=== PATIENT | female | born 1955 | race Caucasian/White ===

== ENCOUNTER → 2020-03-04 09:58 | Outpatient (CLI) | payer MEDICARE, OTHER ==
--- NOTE | 2020-03-08 08:54 | EC ---
PATIENT:LASHELL JACKSON DATE OF SERVICE: 03/04/20 SEX: F MEDICAL RECORD: [id number] DATE OF : 51 LOCATION:[facility] AGE OF PATIENT: 64 ADMISSION DATE: 03/04/20 REFERRING PHYSICIAN: INTERPRETING PHYSICIAN: CALVIN ANDREWS MD ECHOCARDIOGRAM REPORT ECHO CHARGES 4 ECHO COMPLETE Date: 03/04/20 CLINICAL DIAGNOSIS: HEART MURMUR ECHOCARDIOGRAPHIC MEASUREMENTS (adult normal given) AC root (d.<3.7cm) 2.7 cm LV Septum d (<1.2 cm> 1.1 cm Valve Excursion 1.2 cm LV Septum (systole) 1.4 cm Left Atria (s.<4.0cm> 3.7 cm LVPW d(<1.2cm) 1.0 cm RV (d.<2.3cm) 3.5 cm LVPW (sytole) 1.4 cm LV diastole(<5.6CM) 4.5 cm MV E-F(>70mm/sec) cm LV systole 2.7 cm LVOT Diameter 1.8 cm MV exc.(>10mm) 1.1 cm Est.ejection fraction (50-75%) % DOPPLER: LVIT cm/sec A 114.0cm/sec E 97.0 cm/sec LA cm/sec RVSP 98 mmHg LVOT cm/sec AOP1/2T 48 m/s Asc. Ao 106 cm/sec RVOT 134 cm/sec RA 61 cm/sec PA cm/sec AV Gradient Peak 7.18 mmHg AV Mean 3.80 mmHg AV Area 1.9 cm MV Gradient Peak 7.90 mmHg MV Mean 2.77 mmHg MV Area cm COMMENTS: Grill Attendant: 2 DALI NG Food Stylist: 3 Dr. Trammell TAPE# PACS Pericardial Effusion Y DATE OF SERVICE: 03/04/2020 Adequate 2D, color flow imaging, spectral Doppler, and M-Mode. Borderline LVH. LV internal dimensions are normal. Wall motion normal. EF greater than or equal to 55%. Aortic valve is tricuspid. No evidence of stenosis by Doppler interrogation. Left atrium is normal at 3.7 cm. Mitral valve shows no prolapse. Trace MR. Right-sided chambers are grossly normal. Moderate TR. ECHOCARDIOGRAM REPORT [id number] LASHELL JACKSON TRANSINT:[id number] Voice Confirmation ID: [id number] DOCUMENT ID: [id number] CALVIN ANDREWS MD at 0854 CC: [id number] DICTATION DATE: 03/05/20 1351 FISHER SCALLOP: 03/05/20 2232 DEP CLI 03/04/20 [place] [id number] [place] [id number]
== END | disposition home or self-care (01) ==
LOC: D.HCCECHO 09:58
PROVIDERS: ATTEND Internal Medicine Cardiovascular Disease
DX: I20.9 Angina pectoris, unspecified (principal); R01.1 Cardiac murmur, unspecified

== ENCOUNTER 2020-03-15 07:27 | Outpatient (CLI) | payer MEDICARE, OTHER ==
[~2020-03-15] VITALS: Ht 152.4 cm; Wt 52.0 kg
--- NOTE | ~2020-03-15 | HEMODYNAMI ---
PATIENT:LASHELL JACKSON MEDICAL RECORD: [id number] : 51 LOCATION:[facility] ADMISSION DATE: 03/15/20 Generatedon:03/15/202010:54 Patient name: LASHELL JACKSON Patient #: [id number] SSN: [id number] : 1955 Date of study: 03/15/2020 Page: Of Hemodynamic Procedure Report Patient Data Patient Demographics Procedure consent was obtained First Name: LASHELL Gender: Female Last Name: RENETTA : 1955 Patient #: [id number] Age: 64 year(s) Race: Unknown SSN: [id number] Additional ID: [id number] Contact details Address: [address] State: [place] City: [place] Zip code: [address] Past Medical History Allergies: No known allergies Admission Admission Data Admission Date: 03/15/2020 Admission Time: 7: Arrival Date: 03/15/2020 Arrival Time: 0:00 Admit Source: Other Insurance Payor: Medicare [facility] #: [id number] Height (in.): 62 BSA: 1.53 (m2) Height (cm.): 157.48 BMI: 21.58 (kg/m2) Weight (lbs.): 118 Weight (kg.): 53.52 Lab Results Lab Result Date: 03/15/2020 Lab Result Time: 0:00 Biochemistry Name Units Result Min Max BUN mg/dl 14 --(--*-)-- 7 18 Creatinine mg/dl 0.7 --(*---)-- 0.6 1.3 eGFR ml/min 88.47688 -*(----)-- 90 120 NONAFRICAN CBC Name Units Result Min Max Hemoglobin g/dl 14.4 --(*---)-- 13.5 17.5 Procedure Procedure Types Cath Procedure Diagnostic Procedure LHC LHC w/Coronaries Sedation Charges Moderate Sedation up to 45 minutes PCI Procedure Coronary Stent Coronary Stent Initial Hemochron ACT Test Procedure Description Procedure Date Procedure Date: 03/15/2020 Procedure Start Time: 10:20 Procedure End Time: 10:46 Procedure Staff Name Function Tyrel Sun MD Performing Physician Princess Chavarria RT Monitor Delilah Moore RT Scrub Lorin Novoa RN Nurse Procedure Data Cath Procedure Fluoroscopy Diagnostic fluoroscopy Total fluoroscopy Time: 6.3 time: 6.3 min min Diagnostic fluoroscopy Total fluoroscopy dose: 302 dose: 302 mGy mGy Contrast Material Contrast Material Type Amount (ml) Isovue 300 93 Entry Location Entry Primary Successful Side Size Upsize Upsize Entry Closure Summers ccessful Closure Location (Fr) 1 (Fr) 2 (Fr) Remarks Device Remarks Radial Right 6 Fr Mechanical artery Short Compression Estimated blood loss: 10 ml Diagnostic catheters Device Type Used For End Catheter Placement DIAGNOSTIC [place] 110cm 5 Ventriculography Fr catheter ([id number]) Procedure Complications No complications Procedure Medications Medication Administration Route Dosage 0.9% NaCl I.V. 100 ml/hr Oxygen etCO2 Nasal cannula 2 l/min Lidocaine 2% added to field 20 Heparin Flush Bag added to field 2 bags (1000units/500ml NS) Radial Cocktail added to field 1 syringe (Verapamil 2mg/Nitro 400mcg/Heparin 1500units) Versed I.V. 2 mg Fentanyl I.V. 50 mcg Versed I.V. 1 mg Fentanyl I.V. 50 mcg Heparin Bolus I.V. 4000 units Integrilin (Bolus I.V. 4.5 ml 2mg/ml) Integrilin (Bolus wasted 5.5 ml 2mg/ml) Plavix P.O. 600 mg Hemodynamics Rest HGB: 14.4 (g/dl) O2 Consumption: Estimated: 139.06 (ml/min) O2 Consumption index ed: Estimated:90.89 (ml/min/m) Heart Rate: 64 (bpm) Pressure Samples Time Site Value (mmHg) Purpose Heart Use Rate(bpm) 10:24 LV 106/-3,4 Snapshot 64 Gradients Valve Time Site Site Mean SEP/DFP Peak To Heart Use 1 2 (mmHg) (sec/min) Peak Rate (mmHg) (bpm) Aortic 10:24 LV AO 61 Snapshots Pre Cath Intra NCS Post Cath Vital Signs Time Heart Resp SPO2 etCO2 NIBP (mmHg) Rhythm Pain Sedation Rate (ipm) (%) (mmHg) Status Level (bpm) 9:38:00 60 17 99 36 Measuring NSR 0 (11) 10(A) , No pain 9:38:37 57 15 99 35.3 155/67(141) SB 0 (11) 10(A) , No pain 9:43:01 52 13 100 2.2 129/53(88) SB 0 (11) 10(A) , No pain 9:47:21 54 13 100 2.2 118/57(75) SB 0 (11) 10(A) , No pain 9:51:37 53 11 100 0 118/56(82) SB 0 (11) 10(A) , No pain 9:55:55 50 13 100 39.8 118/53(76) SB 0 (11) 10(A) , No pain 10:00:11 51 13 100 39.1 123/59(101) SB 0 (11) 10(A) , No pain 10:04:27 50 14 100 31.5 123/59(77) SB 0 (11) 10(A) , No pain 10:08:47 51 15 100 39.8 120/53(75) SB 0 (11) 10(A) , No pain 10:13:05 50 15 100 37.6 121/56(78) SB 0 (11) 10(A) , No pain 10:17:23 51 16 100 37.6 127/56(85) SB 0 (11) 9(A) , No pain 10:21:40 54 17 100 35.3 142/64(82) SB 0 (11) 9(A) , No pain 10:26:02 55 14 100 34.5 107/48(67) SB 0 (11) 9(A) , No pain 10:30:14 60 16 99 38.3 120/57(79) SB 0 (11) 9(A) , No pain 10:34:27 53 14 98 39.8 137/66(116) SB 0 (11) 9(A) , No pain 10:38:50 55 15 100 38.3 141/64(83) SB 0 (11) 9(A) , No pain 10:43:49 59 19 100 34.5 Measuring SB 0 (11) 9(A) , No pain 10:44:09 60 19 100 34.5 155/70(84) SB 0 (11) 10(A) , No pain Medications Time Medication Route Dose Verified Delivered Reason Not es Effectiveness by by 9:38:58 0.9% NaCl I.V. 100 Tyrel Lorin used for ml/hr Edward Bright procedure MD PHELPS 9:39:04 Oxygen etCO2 2 l/min Tyrel Lorin used for Nasal [facility] procedure cannula MD PHELPS 9:39:10 Lidocaine 2% added 20ml Tyrel Sarah for local to vial [facility] anesthetic field MD TOWNSEND 9:39:14 Heparin Flush added 2 bags Tyrel Sarah used for Bag to [facility] procedure (1000units/500ml field MD TOWNSEND NS) 9:39:18 Radial Cocktail added 1 Tyrel Sarah used for (Verapamil to syringe [facility] procedure 2mg/Nitro field MD TOWNSEND 400mcg/Hepari 10:05:39 Versed I.V. 2 mg Tyrel Lorin for sedation [facility] Chalo Novoa MD RN 10:05:48 Fentanyl I.V. 50 mcg Tyrel Lorin for sedation [facility] Chalo Novoa MD RN 10:12:12 Versed I.V. 1 mg Tyrel Lorin for sedation St Chalo Novoa MD RN 10:12:15 Fentanyl I.V. 50 mcg Tyrel Lorin for sedation St Chalo Novoa MD RN 10:30:19 Heparin Bolus I.V. 4000 Tyrel Lorin for linda ified units [facility] anticoagulation with Dr. TOWNSEND RN Harvest 10:30:33 Integrilin I.V. 4.5 ml Tyrel Lorin for (Bolus 2mg/ml) St Chalo Novoa antiplatelet RN therapy 10:31:43 Integrilin wasted 5.5 ml Tyrel Lorin for (Bolus 2mg/ml) St Chalo Novoa antiplatelet RN therapy 10:31:50 Plavix P.O. 600 mg Tyrel Lorin for [facility] Chalo Novoa antiplatelet RN therapy Procedure Log Time Note 9:23:09 Admit Source: Other 9:23:12 Arrival Date: 03/15/2020 12:00:00 AM 9:23:34 Insurance Payor : Medicare 9:23:45 Patient Height : 62 inches 9:23:50 Patient Weight : 118 lbs 9:23:58 Diagnostic Cath Status : Elective 9:25:03 Procedure Status Elective Heart Cath (OP). 9:25:19 Delilah Oscar RT(R) (CV) sent for patient. Start room use. 9:25:21 Time tracking: Regular hours (M-F 7:00 - 5:00) 9:25:27 Plan of Care:Hemodynamics will remain stable., Cardiac rhythm will remain stable., Comfort level will be maintained., Respiratory function will remain adequate., Patient/ family verbilizes understanding of procedure., Procedure tolerated without complication., Recovers from procedure without complications.. 9:25:33 Patient received from Pre/Post Procedure Room to CCL 1 Alert and oriented. Tansferred to table in Supine position. 9:26:11 Signed procedure consent form obtained from patient. 9:26:13 Warm blankets applied, and no hugger turned on for patient comfort. 9:26:14 Correct patient and procedure confirmed by team. 9:26:19 H&P Date Dictated: 03/15/2020 Within 30 days and on chart., H&P Addendum completed by physician on day of procedure. (MUST COMPLETE FOR ALL OUTPATIENTS). 9:26:30 Pre-procedure instructions explained to patient. 9:26:32 Family in waiting room. 9:30:47 Patient allergic to No known allergies 9:32:00 Is patient on blood thinner?No 9:32:01 Patient diabetic? No. 9:32:06 Snore? No 9:32:07 Sleep apnea? No 9:32:12 Dentures? No ? 9:32:17 Patient pain scale 0/10 ?. 9:32:23 IV patent on arrival in left forearm with 0.9% NaCl at KVO. 9:34:51 Lab Result : eGFR NONAFRICAN 88.40107 ml/min 9:34:51 Lab Result : Hemoglobin 14.4 g/dl 9:34:51 Lab Result : BUN 14 mg/dl 9:34:51 Lab Result : Creatinine 0.7 mg/dl 9:35:27 Right Radial & Right Groin area was prepped with chlora-prep and draped in sterile fashion 9:35:28 Alarms reviewed by R. N. 9:35:29 Sharps counted by scrub and verified by R.N. 9:35:42 ECG and BP/O2 sat monitors applied to patient. 9:36:09 Vital chart was started 9:36:16 Rhythm: sinus rhythm 9:36:17 Full Disclosure recording started 9:38:58 0.9% NaCl 100 ml/hr I.V. was administered by Lorin Novoa RN; used for procedure; Verbal order read back and verified. 9:39:04 Oxygen 2 l/min etCO2 Nasal cannula was administered by Lorin Novoa RN; used for procedure; Verbal order read back and verified. 9:39:10 Lidocaine 2% 20ml vial added to field was administered by Tyrel Sun MD; for local anesthetic; Verbal order read back and verified. 9:39:14 Heparin Flush Bag (1000units/500ml NS) 2 bags added to field was administered by Tyrel Sun MD; used for procedure; Verbal order read back and verified. 9:39:18 Radial Cocktail (Verapamil 2mg/Nitro 400mcg/Heparin 1500units) 1 syringe added to field was administered by Tyrel Sun MD; used for procedure; Verbal order read back and verified. 9:55:18 Zero performed for pressure channel P1 10:00:09 Physician arrived 10:00:10 --------ALL STOP TIME OUT------ 10:00:11 Final Timeout: patient, procedure, and site verified with staff and physician. All members of the team are in agreement. 10:00:20 Right Radial & Right Groin site verified by team. 10:00:25 Fire Safety Assessment: A--An alcohol-based skin anteseptic being used preoperatively., C--Open oxygen or nitrous oxide is being used., D--An ESU, laser, or fiber-optic light is being used. 10:00:30 Physical assessment completed. ASA score P 2 - A patient with mild systemic disease as per Tyrel Sun MD. 10:00:34 2) 60-89 Mildly reduced kidney function, and other findings (as for stage 1) point to kidney disease. 10:00:39 Maximum allowable contrast dose (3.7 X eGFR X 0.75)249 ml. 10:00:44 Sedation plan: IV Moderate Sedation Medication:Versed, Fentanyl 10:01:04 Use device set Radial Dx or PCI 10:01:07 Medline Cath Pack ([id number]) opened to sterile field. 10:01:07 ACIST Syringe (98890) opened to sterile field. 10:01:08 ACIST Manifold (58346) opened to sterile field. 10:01:08 ACIST Hand Control (21212) opened to sterile field. 10:01:08 Bag Decanter (2002S) opened to sterile field. 10:01:09 Tegaderm 4 x 4 (1626W) opened to sterile field. 10:01:17 MBrace Wrist Support (088156455) opened to sterile field. 10:01:19 EMERALD Guide Wire (502-531) opened to sterile field. 10:01:21 SHEATH 6FR RAIN (0304142) opened to sterile field. 10:05:39 Versed 2 mg I.V. was administered by Lorin Novoa RN; for sedation; Verbal order read back and verified. 10:05:48 Fentanyl 50 mcg I.V. was administered by Lorin Novoa RN; for sedation; Verbal order read back and verified. 10:12:12 Versed 1 mg I.V. was administered by Lorin Novoa RN; for sedation; Verbal order read back and verified. 10:12:15 Fentanyl 50 mcg I.V. was administered by Lorin Novoa RN; for sedation; Verbal order read back and verified. 10:20:43 Procedure started. 10:20:55 Local anesthetic to right radial artery with Lidocaine 2% by Tyrel Sun MD.INITIAL ACCESS ONLY 10:21:12 A 6 Fr Short sheath was inserted into the Right Radial artery 10:24:27 A DIAGNOSTIC [place] 110cm 5 Fr catheter (703683) was advanced over the wire and used for Ventriculography. 10:24:35 LV angiography performed. 10:24:39 LCA angiography performed. 10:25:57 RCA angiography performed. 10:27:03 Catheter removed. 10:27:54 INFLATOR Merit BasixCompak (SG0844) opened to sterile field. 10:27:54 GUIDE 6FR XBLAD 3.5 catheter (62501274) opened to sterile field. 10:27:55 WHISPER 300cm guide wire (8121233AO) opened to sterile field. 10:28:00 Proceeding to intervention. 10:28:38 6 Fr XBLAD3.5 guide catheter was inserted over the wire 10:28:42 Whisper wire advanced. 10:30:19 Heparin Bolus 4000 units I.V. was administered by Lorin Novoa RN; for anticoagulation; verified with Dr. Trammell Verbal order read back and verified. 10:30:33 Integrilin (Bolus 2mg/ml) 4.5 ml I.V. was administered by Lorin Novoa RN; for antiplatelet therapy; Verbal order read back and verified. 10:31:43 Integrilin (Bolus 2mg/ml) 5.5 ml wasted was administered by Lorin Novoa RN; for antiplatelet therapy; Verbal order read back and verified. 10:31:50 Plavix 600 mg P.O. was administered by Lorin Novoa RN; for antiplatelet therapy; Verbal order read back and verified. 10:32:53 Wire advanced across lesion. 10:37:11 Inflate balloon Inflation number: 1 A EMERGE OTW 2.5 x 20 balloon ([id number]) was prepped and advanced across the Mid LAD 90, then inflated to 8 JORDAN for 0:08 (min:sec) . 10:37:40 Inflation number: 2 The EMERGE OTW 2.5 x 20 balloon ([id number]) was reinflated across the Mid LAD 90, to 10 JORDAN for 0:00 (min:sec) . 10:38:59 Balloon removed over the wire. 10:43:11 Place stent Inflation Number: 3 A BREN OTW 3.0 x 38 stent ([id number]) was prepped and advanced across the Mid LAD 90. The stent was deployed at 14 JORDAN for 0:12 (min:sec) . 10:43:16 TR BAND Standard ([id number]) opened to sterile field. 10:43:36 Guide catheter removed. 10:44:13 Sheath removed intact; hemostasis achieved with Mechanical Compression to the Right Radial artery. 10:44:17 Procedure ended.(Physican Out) 10:44:28 Fluoroscopy time 06.30 minutes. :44:33 Fluoroscopy dose: 302 mGy 10:44:33 Flurop Dose total: 302 10:44:37 Dose Area Product 65824 mGy/cm. 10:44:44 Contrast amount:Isovue 300 93ml. 10:44:48 Maximum allowable dose exceeded? No. 10:44:49 Sharps counted by scrub and verified by R.N. 10:44:51 [place] band inflated with 10cc of air. 10:44:54 Post Procedure Pulses reassessed and unchanged 10:45:01 Post procedure rhythm: sinus rhythm 10:45:04 Estimated blood loss: 10 ml 10:45:06 Post procedure instruction explained to patient.Patient verbalizes understanding. 10:45:56 Procedure type changed to Cath procedure, Diagnostic procedure, LHC, [facility] w/Coronaries, Sedation Charges, Moderate Sedation up to 45 minutes, PCI procedure, Coronary Stent, Coronary Stent Initial, Hemochron ACT Test 10:45:57 Procedure and supply charges have been captured, reviewed, submitted and are correct. 10:46:25 Procedure Complication : No complications 10:46:27 Vital chart was stopped 10:46:33 [facility] Findings: MVD- PCI performed (see procedure note) 10:46:36 Operative report dictated upon procedure completion. 10:46:40 Report given to Pre/Post Procedure Room. 10:46:44 Patient transfered to Pre/Post Procedure Room with Stretcher. 10:46:48 Full Disclosure recording stopped 10:46:48 Procedure ended. 10:46:52 End room use (Document Last) 10:47:03 ACC-PCI Only Patient was given prescriptions, or instructed by Tyrel Sun MD to start/continue the following medications upon discharge: Plavix 10:47:49 ACT drawn and resulted at 309 seconds. (normal therapeutic range 180-240 seconds). Intervention Summary Intervention Notes Time ActionType Lesion and Equipment Action# Pressure Duration Attributes Used 10:37:11 Inflate Mid LAD EMERGE OTW 1 8 00:08 balloon 2.5 x 20 balloon ([id number]) 10:37:40 Reinflate Mid LAD EMERGE OTW 2 10 00:00 balloon 2.5 x 20 balloon ([id number]) 10:43:11 Place stent Mid LAD BREN OTW 3.0 3 14 00:12 x 38 stent ([id number]) Device Usage Item Name Manufacture Quantity Catalog Number Hospital Part Current M inimal Lot# / Charge Number Stock Stock Serial# Code ACIST Syringe Acist 1 59216 033643 204864 831747 2 0 (86553) FreshRealm Inc Medline Cath Medline 1 [id number] 572151 14317 619770 5 Pack ([id number]) Bag Decanter Microtek 1 080418 13904 425278 5 () Medical Inc. ACIST Hand Acist 1 83905 336980 955654 584515 5 Control Medical (78526) Systems Inc ACIST Acist 1 23758 295567 164134 065449 5 Manifold Medical (45860) Systems Inc Tegaderm 4 x 3M 1 1626W 353388 773491 540135 5 4 (1626W) MBrace Wrist Advanced 1 140-0250-00 953476 56254 758560 5 Support Vascular (575696908) Dynamics EMERALD Guide Cardinal 1 502-455 691418 079467 253667 5 Wire Health (502-455) SHEATH 6FR Cardinal 1 5055813 685855 2259230 960223 5 RAIN Health (4376040) DIAGNOSTIC Terumo 1 40-5013 564291 085559 367386 5 [place] 110cm 5 Fr catheter (293176) GUIDE 6FR Cardinal 1 00331292 666681 331355 863341 1 0 XBLAD 3.5 Health catheter (94219728) INFLATOR Merit 1 ZU0410 881103 469890 911033 1 5 [facility] Medical BasixCompak (CM9875) WHISPER 300cm [place] 1 [id number] 473012 718650 397223 5 guide wire Vascular (6873807WE) EMERGE OTW [place] 1 [id number] 512680 694623 010319 5 [id number] 2.5 x 20 Scientific balloon (5513082502) BREN OTW 3.0 Medtronic 1 [id number] 274018 1597838 251125 5 [id number] x 38 stent ([id number]) TR BAND Terumo 1 IHI28-ISF 439239 039334 923292 4 0 Standard ([id number]) Signature Audit [place] Stage Time Signature Unsigned Intra-Procedure 03/15/2020 Princess Chavarria 10:50:13 AM RT(R); Lorin Novoa RN; Tyrel Sun MD [place] [id number] [place] [address]
[2020-03-15] MEDS ORDERED: MELATONIN5 MG PO (08:40)
[2020-03-15] MEDS ORDERED: BAYER CHEWABLE81 MG PO (08:40)
[2020-03-15] MEDS ORDERED: VITAMIN B-12250 MC3 PO (08:40)
[2020-03-15] MEDS ORDERED: CALCIUM 250+D T1 TAB PO (08:40)
[2020-03-15 08:58] VITALS: BP 143/58; Ht 152.4 cm; Wt 52.0 kg
[2020-03-15 09:07] LABS: BASOPHILS 0.4 % (0-2); EOSINOPHILS 2.1 % (0-7); HEMOGLOBIN 14.4 g/dL (12-16); IMMATURE GRANULOCYTES 0.2 % (0-5); LYMPHOCYTES 32.7 % (15-50); MCH 29.7 pg (26.0-34.0); MCHC 32.7 g/dL (31.0-37.0); MCV 90.7 fL (80.0-100.0); MEAN PLATELET VOLUME 10.1 fL (7.4-10.4); MONOCYTES 8.5 % (2-11); NEUTROPHILS 56.1 % (40-80); PLATELET COUNT 189 10x3/uL (130-400); RBC 4.85 10x6/uL (4.00-5.40); RDW 13.1 % (11.5-14.5); WBC 4.8 10x3/uL (4.8-10.8)
[2020-03-15 09:19] LABS: ALT (SGPT) 28 U/L (10-68); CALC OSMOLALITY 270 mosm/kg (275-300); CALCIUM 9.1 mg/dL (8.5-10.1); CARBON DIOXIDE 29.7 mmol/L (21.0-32.0); CHLORIDE - SERUM 99 mmol/L (98-107); CHOL - HDL RATIO 2.8 ratio (2.3-4.1); CHOLESTEROL, TOTAL 248 mg/dL (0-200); CREATININE - SERUM 0.7 mg/dL (0.6-1.3); GLUCOSE 94 mg/dL (74-106); HDL CHOLESTEROL 89 mg/dL (32-96); LDL CHOLESTEROL 151 mg/dL (0-100); LDL-HDL RATIO 1.7 ratio (1.5-3.5); POTASSIUM - SERUM 3.6 mmol/L (3.5-5.1); SODIUM 135 mmol/L (136-145); TRIGLYCERIDE 42 mg/dL (30-200); UREA NITROGEN 14 mg/dL (7-18); eGFR NON AFRICAN AMERICAN 89 mL/min (90-120)
--- NOTE | 2020-03-15 11:05 | NUR ---
PT ARRIVED BY STRETCHER. PLACED ON MONITORS. ASSESSMENT COMPLETED. VSS AT THIS TIME. CALL LIGHT WITHIN REACH. FAMILY AT BEDSIDE. DR. ADNREWS ROUNDED AND SPOKE WITH PT'S .
[2020-03-15] MEDS ORDERED: PLAVIX75 MG PO (11:19)
[2020-03-15] MEDS ORDERED: LIPITOR20 MG PO (11:19)
--- NOTE | 2020-03-15 11:30 | NUR ---
PT RESTING COMFORTABLY, DENIES PAIN OR DISCOMFORT. ZBAND AND IMMOBILIZER IN PLACE, NO S/S BLEEDING OR HEMATOMA. VSS. CALL LIGHT IN REACH, AT BEDSIDE.
--- NOTE | 2020-03-15 12:15 | NUR ---
PT RESTING COMFORTABLY, DENIES PAIN OR NEEDS. ZBAND AND IMMOBILIZER IN PLACE, NO S/S HEMATOMA NOTED. VSS. CALL LIGHT IN REACH
--- NOTE | 2020-03-15 12:46 | NUR ---
PT RESTING W/O COMPLAINTS. WATER SERVED, SANDWICH OFFERED BUT SHE DECLINES AT THIS TIME. ZBAND IN PLACE, NO S/S HEMATOMA. VSS. REMAINS AT BS, CALL LIGHT IN REACH
--- NOTE | 2020-03-15 13:20 | NUR ---
PT RESTING W/O COMPLAINTS. VSS. ZBAND AND IMMOBILIZER IN PLACE. NO S/S HEMATOMA OR BLEEDING. CALL LIGHT IN REACH, AT BS
--- NOTE | 2020-03-15 13:50 | NUR ---
PT PLACED ON BEDPAN, VOIDED 300 CC CLEAR YELLOW URINE. ZBAND AND IMMOBILIZER REMAIN IN PLACE, NO S/S HEMATOMA. PT DENIES NEEDS AT THIS TIME. CALL LIGHT IN REACH, VSS
--- NOTE | 2020-03-15 14:05 | NUR ---
5CC AIR REMOVED FROM Z BAND, SMALL AMT OF BLEEDING, 2 CC AIR REPLACED. NO BLEEDING NOTED AFTER, WILL MONITOR.
--- NOTE | 2020-03-15 14:35 | NUR ---
DISCHARGE INSTRUCTIONS REVIEWED W PT AND , BOTH VERBALIZED UNDERSTANDING. EXPLAINED IMPORTANCE OF GETTING PRESCRIPTIONS FILLED AND STARTING THEM TOMORROW, THEY UNDERSTOOD. IV REMOVED W CATH INTACT, MONITORS REMOVED AND PT UP TO DRESS FOR DISCHARGE W ZBAND AND IMMOBILIZER IN PLACE.
--- NOTE | 2020-03-15 15:06 | NUR ---
1445 ZBAND REMOVED, NO BLEEDING OR S/S HEMATOMA NOTED. SITE CLEANED, 2X2 AND SM TEGADERM DRESSING APPLIED. IMMOBILIZER REPOSITIONED. 1500 PT TO BR VIA WC, VOIDING W/O DIFFICULITY. PT THEN DISCHARGED VIA WC TO WAITING IN PRIVATE VEHICLE. PT HAD ALL BELONGINGS AND DISCHARGE PAPERWORK IN HAND.
--- NOTE | 2020-03-16 08:41 | OP ---
PATIENT NAME: LASHELL JACKSON MEDICAL RECORD: [id number] :51 LOCATION:D.CAT ADMISSION DATE: SURGEON: CALVIN ANDREWS MD DATE OF OPERATION: 03/15/2020 PROCEDURE: Left heart catheterization, selective coronary angiography, right radial approach. CATHETERS: Radial sheath and [place] catheter. The procedure was well tolerated. We proceeded with the PTCA stenting to the LAD. FINDINGS: Left ventriculography in 30-degree MICHELE view: Normal wall motion. Normal systolic function. CORONARY ANATOMY: LEFT MAIN: Free of disease. LAD: Severe diffuse 90% stenosis from just past the circumflex on down to the second diagonal. CIRCUMFLEX: Itself free of disease. RIGHT CORONARY ARTERY: Two sequential 80% stenoses. IMPRESSION: Two-vessel disease, corresponding nicely with nuclear study with plan intervention to LAD, right, in a staged fashion. DESCRIPTION OF PROCEDURE: Using indwelling sheath, XB LAD guide catheter provided excellent guide catheter support followed by 300 cm Whisper wire down this portion of vessel. Pre-deployment balloon, used a 2.5 x 20 mm [place] balloon. Stent deployed was 38 x 3.0 Harvey drug-eluting stent up to 14 atmospheres for 45 seconds. Final angiography shows excellent resolution of a 90% plus diffuse stenosis. No significant residual. ARMANDO flow was 3 throughout the procedure. Sheath was closed with TR band. PLAN: Intervention to the right a later date. NTS:[id number] Voice Confirmation ID: [id number] DOCUMENT ID: [id number] CALVIN ANDREWS MD at 0841 CC: [id number] DICTATION DATE: 03/15/20 1053 [place] SET UP OPERATOR VERTICAL: 03/15/20 1823 DEP CLI 03/15/20 [facility] [address] [place] [id number]
--- NOTE | 2020-03-16 08:41 | HP ---
PATIENT: LASHELL JACKSON MEDICAL RECORD: [id number] ACCOUNT: [id number] LOCATION:[facility] : 51 ADMISSION DATE: 03/15/20 PCP: DEO ACKERMAN M.D. HISTORY AND PHYSICAL EXAMINATION HISTORY OF PRESENT ILLNESS: A 64-year-old female with known history of coronary artery disease, seen in the office originally with class III angina symptomatology rapidly progressive, abnormal Cardiolite stress testing consistent with 2-vessel disease involving the anterior lateral segments. She is being brought forth for angiography. PAST MEDICAL HISTORY: Includes: 1. History of hypertension. 2. Hyperlipidemia. ALLERGIES: None known. PHYSICAL EXAMINATION: GENERAL: Pleasant female, in no acute distress. HEENT: Normocephalic and atraumatic. NECK: No bruits. HEART: Regular. LUNGS: Sagastume clear. ABDOMEN: Soft, nontender. EXTREMITIES: Pulse 2+. No edema. IMAGING STUDIES: Nuclear stress testing is abnormal as described above. PLAN: For angiography, intervention based on above. TRANSINT:[id number] Voice Confirmation ID: [id number] DOCUMENT ID: [id number] CALVIN ANDREWS MD at 0841 CC: [id number] DICTATION DATE: 03/15/20 0851 BARTENDER SERVER: 03/15/20 1400 DEP CLI 03/15/20 [place] [id number] [place] [address]
== END 2020-03-15 15:05 | disposition home or self-care (01) ==
LOC: D.CATH 07:27
PROVIDERS: ATTEND Internal Medicine Interventional Cardiology
DX: I25.119 Atherosclerotic heart disease of native coronary artery with unspecified angina pectoris (principal); I10 Essential (primary) hypertension; E78.5 Hyperlipidemia, unspecified; R07.9 Chest pain, unspecified; R94.31 Abnormal electrocardiogram [ECG] [EKG]; R01.1 Cardiac murmur, unspecified
CPT/HCPCS: 93458; C9600

== ENCOUNTER 2020-03-24 07:20 | Day surgery (SDC) | payer MEDICARE, OTHER ==
[~2020-03-24] VITALS: Ht 152.4 cm; Wt 52.2 kg
--- NOTE | ~2020-03-24 | HEMODYNAMI ---
PATIENT:LASHELL JACKSON MEDICAL RECORD: [id number] : 51 LOCATION:[facility] ADMISSION DATE: 03/24/20 Generatedon:03/24/202010:40 Patient name: LASHELL JACKSON Patient #: [id number] SSN: [id number] : 1955 Date of study: 03/24/2020 Page: Of Hemodynamic Procedure Report Patient Data Patient Demographics Procedure consent was obtained First Name: LASHELL Gender: Female Last Name: RENETTA : 1955 Patient #: [id number] Age: 64 year(s) Race: SSN: [id number] Additional ID: [id number] Contact details Address: [address] State: [place] City: [place] Zip code: [address] Past Medical History Allergies Allergen Reaction Date Comments Reported Other allergy 03/24/2020 NK Admission Admission Data Admission Date: 03/24/2020 Admission Time: 7:20 Arrival Date: 03/24/2020 Arrival Time: 0:00 Insurance Payor: Medicare Height (in.): 59.84 BSA: 1.47 (m2) Height (cm.): 152 BMI: 22.51 (kg/m2) Weight (lbs.): 114.64 Weight (kg.): 52 Lab Results Lab Result Date: 03/24/2020 Lab Result Time: 0:00 Biochemistry Name Units Result Min Max BUN mg/dl 14 --(--*-)-- 7 18 Creatinine mg/dl 0.6 --(*---)-- 0.6 1.3 eGFR ml/min 90 --(*---)-- 90 120 NONAFRICAN CBC Name Units Result Min Max Hematocrit % 42.1 --(*---)-- 42 54 Hemoglobin g/dl 14.1 --(*---)-- 13.5 17.5 Procedure Procedure Types Cath Procedure Diagnostic Procedure [facility] Sedation Charges Moderate Sedation up to 15 minutes PCI Procedure Coronary Stent Coronary Stent Initial Hemochron ACT Test Procedure Description Procedure Date Procedure Date: 03/24/2020 Procedure Start Time: 10:18 Procedure End Time: 10:39 Procedure Staff Name Function Tyrel Sun MD Performing Physician Delilah Moore RT Monitor Amy Sprague RN Nurse Ed B[facility] Procedure Data Cath Procedure Fluoroscopy Diagnostic fluoroscopy Total fluoroscopy Time: 3.6 time: 3.6 min min Diagnostic fluoroscopy Total fluoroscopy dose: 116 dose: 116 mGy mGy Contrast Material Contrast Material Type Amount (ml) Isovue 300 57 Entry Location Entry Primary Successful Side Size Upsize Upsize Entry Closure Succes sful Closure Location (Fr) 1 (Fr) 2 (Fr) Remarks Device Remarks Femoral Right 6 Fr Exoseal artery Short Estimated blood loss: 10 ml Procedure Complications No complications Procedure Medications Medication Administration Route Dosage Oxygen etCO2 Nasal cannula 2 l/min Lidocaine 2% added to field 20 Heparin Flush Bag added to field 2 bags (1000units/500ml NS) 0.9% NaCl I.V. 100 ml/hr Versed I.V. 1 mg Fentanyl I.V. 50 mcg Heparin Bolus I.V. 4000 units Versed I.V. 1 mg Fentanyl I.V. 50 mcg Hemodynamics Rest BSA: 1.47 (m2) HGB: 14.1 (g/dl) O2 Consumption: Estimated: 131.74 (ml/min) O2 Co nsumption indexed: Estimated:89.62 (ml/min/m) Heart Rate: 61 (bpm) Snapshots Pre Cath Intra NCS Post Cath Vital Signs Time Heart Resp SPO2 etCO2 NIBP (mmHg) Rhythm Pain Sedation Rate (ipm) (%) (mmHg) Status Level (bpm) 10:05:42 57 15 99 33.8 149/62(95) NSR 0 (11) 10(A) , No pain 10:10:04 56 14 100 36 133/61(102) NSR 0 (11) 10(A) , No pain 10:14:24 52 17 97 37.6 108/49(72) NSR 0 (11) 10(A) , No pain 10:18:32 60 15 97 41.3 119/58(87) NSR 0 (11) 10(A) , No pain 10:22:44 60 18 98 39.8 118/57(92) NSR 0 (11) 10(A) , No pain 10:26:56 58 19 98 39.8 112/54(83) NSR 0 (11) 10(A) , No pain 10:31:04 63 14 98 39.8 120/59(91) NSR 0 (11) 10(A) , No pain 10:35:14 62 12 99 38.3 125/65(82) NSR 0 (11) 10(A) , No pain Medications Time Medication Route Dose Verified Delivered Reason Notes Effectiveness by by 10:04:45 Oxygen etCO2 2 Tyrel Buffie used for Nasal l/min St Chalo Sprague RN procedure cannula 10:04:54 Lidocaine 2% added 20ml Tyrel Tyrel for local to vial [facility] anesthetic field MD T[place]NSEND 10:04:59 Heparin Flush added 2 Tyrel Tyrel used for Bag to bags [facility] procedure (1000units/500ml field MD T[place]NSEND NS) 10:05:08 0.9% NaCl I.V. 100 Tyrel Taborie Per physician ml/hr St Chalo Sprague RN, MD 10:19:19 Versed I.V. 1 mg Tyrel Taborie for sedation St Chalo Sprague RN, MD 10:19:25 Fentanyl I.V. 50 Tyrel Buffie for sedation mcg St Chalo Sprague RN, MD 10:20:55 Heparin Bolus I.V. 4000 Tyrel Buffie for verif ied units St Chalo Sprague RN anticoagulation with dr MD simmons 10:26:04 Versed I.V. 1 mg Tyrel Buffie for sedation St Chalo Sprague RN, MD 10:26:09 Fentanyl I.V. 50 Tyrel Taborie for sedation mcg St Chalo Sprague RN, MD Procedure Log Time Note 9:50:54 Grace Sagastume RT(R) sent for patient. Start room use. 9:55:51 Procedure Status Elective Heart Cath (OP). 9:55:57 Time tracking: Regular hours (M-F 7:00 - 5:00) 9:56:06 Plan of Care:Hemodynamics will remain stable., Cardiac rhythm will remain stable., Comfort level will be maintained., Respiratory function will remain adequate., Patient/ family verbilizes understanding of procedure., Procedure tolerated without complication., Recovers from procedure without complications.. 9:56:28 Patient received from Pre/Post Procedure Room to CCL 1 Alert and oriented. Tansferred to table in Supine position. 9:56:32 Signed procedure consent form obtained from patient. 9:56:34 Warm blankets applied, and no hugger turned on for patient comfort. 9:56:35 Correct patient and procedure confirmed by team. 9:56:37 ECG and BP/O2 sat monitors applied to patient. 10:04:23 Baseline sample Acquired. 10:04:23 Vital chart was started 10:04:31 Rhythm: sinus rhythm 10:04:33 Full Disclosure recording started 10:04:40 H&P Date Dictated: 03/24/2020 H&P Addendum completed by physician on day of procedure. (MUST COMPLETE FOR ALL OUTPATIENTS), New H&P dictated by physician.. 10:04:42 Pre-procedure instructions explained to patient. 10:04:43 Pre-op teaching completed and patient verbalized understanding. 10:04:45 Oxygen 2 l/min etCO2 Nasal cannula was administered by Amy Sprague RN; used for procedure; Verbal order read back and verified. 10:04:46 Family in patients room. 10:04:48 Patient NPO since Midnight. 10:04:54 Lidocaine 2% 20ml vial added to field was administered by Tyrel Sun MD; for local anesthetic; Verbal order read back and verified. 10:04:59 Heparin Flush Bag (1000units/500ml NS) 2 bags added to field was administered by Tyrel Sun MD; used for procedure; Verbal order read back and verified. 10:05:07 Patient allergic to Other allergyNKDA 10:05:08 0.9% NaCl 100 ml/hr I.V. was administered by Amy Sprague RN; Per physician; Verbal order read back and verified. 10:05:11 Is the patient allergic to Iodine/contrast media? No. 10:05:13 Was the patient premedicated? Yes 10:05:15 Is patient on blood thinner?Yes 10:05:20 ACC The patient was administered the following blood thiners within the last 24 hours: ACCPlavix 10:05:23 Patient diabetic? No. 10:05:30 ----Pre-sedation anethsthesia assessment.---- 10:05:33 Previous problem with sedation/anesthesia? No ? 10:05:50 Snore? Yes 10:05:52 Sleep apnea? No 10:05:55 Deviated septum? Unknown 10:05:58 Opens mouth fully? Yes 10:06:02 Sticks out tongue? Yes 10:06:06 Airway obstruction? No ? 10:06:11 Dentures? No ? 10:06:17 Pre procedure: right dorsailis pedis pulse 2+ Normal; easily identifiable; not easily obliterated 10:06:33 IV patent on arrival in left forearm with 0.9% NaCl at [facility]. 10:07:31 Lab Result : BUN 14 mg/dl 10:: Lab Result : Creatinine 0.6 mg/dl 10:: Lab Result : Hemoglobin 14.1 g/dl 10:: Lab Result : eGFR NONAFRICAN 90 ml/min 10:: Lab Result : Hematocrit 42.1 % 10:07:39 Lab results completed and on chart. 10:08:02 Stress Test: yes; abnormal ANTERIOR AND APICAL 10:08:08 Right groin area was prepped with chlora-prep and draped in sterile fashion 10:08:13 Alarms reviewed by R. N. 10:08:15 Sharps counted by scrub and verified by R.N. 10:08:21 Use device set Femoral Dx 10:08:23 ACIST Syringe (05235) opened to sterile field. 10:08:23 Bag Decanter (2002S) opened to sterile field. 10:08:26 ACIST Hand Control (26075) opened to sterile field. 10:08:27 ACIST Manifold (32556) opened to sterile field. 10:08:29 Tegaderm 4 x 4 (1626W) opened to sterile field. 10:08:33 EMERALD Guide Wire (502-072) opened to sterile field. 10:09:00 INFLATOR Merit BasixCompak (AK7886) opened to sterile field. 10:09:01 WHISPER 300cm guide wire ([id number]) opened to sterile field. 10:09:02 SHEATH 6FR [place] (JOM417) opened to sterile field. 10:11:03 Arrival Date: 03/24/2020 12:00:00 AM 10:11:23 Patient Height : 59.84 inches 10:11:27 Patient Weight : 114.64 lbs 10:11:32 Insurance Payor : Medicare 10:14:58 Physician arrived 10:14:58 --------ALL STOP TIME OUT------ 10:14:59 Final Timeout: patient, procedure, and site verified with staff and physician. All members of the team are in agreement. 10:15:02 Right groin site verified by team. 10:15:07 Fire Safety Assessment: A--An alcohol-based skin anteseptic being used preoperatively., C--Open oxygen or nitrous oxide is being used., D--An ESU, laser, or fiber-optic light is being used. 10:15:14 Physical assessment completed. ASA score P 2 - A patient with mild systemic disease as per Tyrel Sun MD. 10:15:20 1) 90+ Normal kidney functon but urine findings or structural abnormalities or genetic trait point to kidney disease. 10:15:24 Maximum allowable contrast dose (3.7 X eGFR X 0.75)250 ml. 10:15:30 Sedation plan: IV Moderate Sedation Medication:Versed, Fentanyl 10:15:39 Zero performed for pressure channel P1 10:17:56 Procedure started. 10:18:47 Local anesthetic to right femoral artery with Lidocaine 2% by Tyrel Sun MD.INITIAL ACCESS ONLY 10:19:03 A 6 Fr Short sheath was inserted into the Right Femoral artery 10:19:18 GUIDE 6FR HS I catheter (LA6HSI) opened to sterile field. 10:19:19 Versed 1 mg I.V. was administered by Amy Sprague RN; for sedation; Verbal order read back and verified. 10:19:25 Fentanyl 50 mcg I.V. was administered by Amy Sprague RN; for sedation; Verbal order read back and verified. 10:19:48 ACC Pre-intervention ARMANDO Flow is 3. 10:20:02 6 Fr HS1 guide catheter was inserted over the wire 10:20:10 RCA angiography performed. 10:20:14 Injector settings: Ml/sec: 3, Volume: 6, 10:20:55 Heparin Bolus 4000 units I.V. was administered by Amy Sprague RN; for anticoagulation; verified with dr simmons Verbal order read back and verified. 10:21:16 Pre PCI Site: [place] mRCA has 80% stenosis. 10:21:26 [id number] wire advanced. 10:22:13 Guide catheter removed. 10:22:31 GUIDE 6FR HS I SH catheter ([id number]) opened to sterile field. 10:22:55 6 Fr HS1SH guide catheter was inserted over the wire 10:26:04 Versed 1 mg I.V. was administered by Amy Sprague RN; for sedation; Verbal order read back and verified. 10:26:09 Fentanyl 50 mcg I.V. was administered by Amy Sprague RN; for sedation; Verbal order read back and verified. 10:28:01 Place stent Inflation Number: 1 A BREN RX 3.0 x 12 stent ([id number]) was prepped and advanced across the Mid RCA . The stent was deployed at 14 JORDAN for 0:24 (min:sec) . 10:28:23 Stent catheter was removed intact over wire. 10:32:00 Place stent Inflation Number: 2 A BREN RX 3.0 x 12 stent ([id number]) was prepped and advanced across the Mid RCA . The stent was deployed at 14 JORDAN for 0:18 (min:sec) . 10:32:46 Stent catheter was removed intact over wire. 10:32:48 Guide catheter removed. 10:32:53 Wire removed. 10:33:11 EXOSEAL 6Fr (EX600) opened to sterile field. 10:33:35 Post PCI Site: [place] mRCA has 0% stenosis. 10:33:41 ACC Post-intervention ARMANDO Flow is 3. 10:33:58 Sheath removed intact; hemostasis achieved with Exoseal to the Right Femoral artery. 10:34:10 Procedure ended.(Physican Out) 10:34:40 Contrast amount:Isovue 300 57ml. 10:34:49 Fluoroscopy time 03.60 minutes. 10:34:54 Flurop Dose total: 116 10:34:54 Fluoroscopy dose: 116 mGy 10:35:02 Dose Area Product 5387 mGy/cm. 10:35:06 Maximum allowable dose exceeded? No. 10:35:07 Sharps counted by scrub and verified by R.N. 10:35:11 Insertion/operative site no bleeding no hematoma. 10:35:16 Post-op/insertion site Right Femoral artery dressed using a 4 x 4 and Tegaderm. 10:35:21 Post-procedure physical assessment completed. ASA score P 2 - A patient with mild systemic disease as per Tyrel Sun MD. 10:35:24 Post procedure rhythm: unchanged. 10:35:28 Estimated blood loss: 10 ml 10:35:30 Post procedure instruction explained to patient.Patient verbalizes understanding. 10:35:31 Patient needs reinforcement of post procedure teaching. 10:36:51 Procedure type changed to Cath procedure, Diagnostic procedure, C, Sedation Charges, Moderate Sedation up to 15 minutes, PCI procedure, Coronary Stent, Coronary Stent Initial, Hemochron ACT Test 10:36:53 Procedure and supply charges have been captured, reviewed, submitted and are correct. 10:37:27 Procedure Complication : No complications 10:37:31 Vital chart was stopped 10:37:34 [facility] Findings: MVD- PCI performed (see procedure note) 10:37:38 Operative report dictated upon procedure completion. 10:37:41 See physician's report for complete and final results. 10:37:44 Report given to Pre/Post Procedure Room. 10:37:48 Patient transfered to Pre/Post Procedure Room with Stretcher. 10:38:47 ACT drawn and resulted at 293 seconds. (normal therapeutic range 180-240 seconds). 10:39:17 Procedure ended. 10:39:17 Full Disclosure recording stopped 10:39:25 ACC-PCI Only Patient was given prescriptions, or instructed by Tyrel Sun MD to start/continue the following medications upon discharge: Plavix 10:39:27 End room use (Document Last) Intervention Summary Intervention Notes Time ActionType Lesion and Equipment Used Action# Pressure Duration Attributes 10:28:01 Place stent Mid RCA BREN RX 3.0 x 1 14 00:24 12 stent ([id number]) 10:32:00 Place stent Mid RCA BREN RX 3.0 x 2 14 00:18 12 stent ([id number]) Device Usage Item Name Manufacture Quantity Catalog Hospital Part [facility] Lot# / Number Charge Number Stock Stock Serial# Code ACIST Syringe Acist 1 62652 808782 795329 349837 20 (12375) Medical Systems Inc Bag Decanter Microtek 1 716975 08313 806220 5 () Medical Inc. ACIST Hand Acist 1 36905 349477 422077 645871 5 Control Medical (51404) Systems Inc ACIST Manifold Acist 1 30291 913299 395298 202215 5 (03305) Medical Systems Inc Tegaderm 4 x 4 3M 1 1626W 717829 318409 807042 5 (1626W) EMERALD Guide Cardinal 1 502-455 678666 588789 432626 5 Wire (502-455) Health INFLATOR Merit Merit 1 EW5840 329013 200350 214543 15 KangoumiPolaris Health Directions (LT3846) WHISPER 300cm [place] 1 [id number] 499284 183142 775152 5 guide wire Vascular ([id number]) SHEATH 6FR Terumo 1 ZKN604 213650 978719 781343 40 [place] (CZE032) GUIDE 6FR HS I Medtronic 1 LA6HSI 169196 52851 895313 1 catheter (LA6HSI) GUIDE 6FR HS I Medtronic 1 [id number] 545816 83190 200833 1 SH catheter ([id number]) BREN RX 3.0 x Medtronic 2 [id number] 855862 7591237 205462 5 [id number] 12 stent [id number] ([id number]) EXOSEAL 6Fr Cardinal 1 EX600 256016 822791 424218 10 (EX600) Health Signature Audit [place] Stage Time Signature Unsigned Intra-Procedure 03/24/2020 Delilah 10:39:49 AM Oscar RT(R) (CV) Intra-Procedure 03/24/2020 Amy Sprague RN 10:40:22 AM Intra-Procedure 03/24/2020 Tyrel Rojo 10:40:50 AM Chalo T[place] [id number] [place] [address]
[~2020-03-24 07:20] MED LIST: BAYER CHEWABLE81 MG PO; CALCIUM 250+D T1 TAB PO; LIPITOR20 MG PO; MELATONIN5 MG PO; PLAVIX75 MG PO; VITAMIN B-12250 MC3 PO
[2020-03-24] MEDS ORDERED: OS-CAL500 MG PO (08:25)
[2020-03-24] MEDS ORDERED: MERIBIN5 MG PO (08:25)
[2020-03-24] MEDS ORDERED: VITAMIN D1000 UNIT PO (08:27)
[2020-03-24 08:32] VITALS: BP 142/58; Ht 152.4 cm; Wt 52.2 kg
[2020-03-24 08:54] LABS: BASOPHILS 0.3 % (0-2); EOSINOPHILS 1.8 % (0-7); HEMATOCRIT 42.1 % (36.0-48.0); HEMOGLOBIN 14.1 g/dL (12-16); IMMATURE GRANULOCYTES 0.1 % (0-5); LYMPHOCYTES 27.3 % (15-50); MCH 30.1 pg (26.0-34.0); MCHC 33.5 g/dL (31.0-37.0); MEAN PLATELET VOLUME 9.7 fL (7.4-10.4); MONOCYTES 6.6 % (2-11); NEUTROPHILS 63.9 % (40-80); PLATELET COUNT 189 10x3/uL (130-400); RBC 4.68 10x6/uL (4.00-5.40); WBC 7.4 10x3/uL (4.8-10.8)
[2020-03-24 09:09] LABS: CALC OSMOLALITY 269 mosm/kg (275-300); CALCIUM 10.8 mg/dL (8.5-10.1); CARBON DIOXIDE 31.3 mmol/L (21.0-32.0); CHLORIDE - SERUM 100 mmol/L (98-107); CREATININE - SERUM 0.6 mg/dL (0.6-1.3); GLUCOSE 89 mg/dL (74-106); POTASSIUM - SERUM 3.9 mmol/L (3.5-5.1); SODIUM 135 mmol/L (136-145); UREA NITROGEN 14 mg/dL (7-18); eGFR NON AFRICAN AMERICAN > 90 mL/min (90-120)
--- NOTE | 2020-03-24 10:55 | NUR ---
PT REC'D TO ROOM 9 VIA STRETCHER FROM FLOOR LAYER HELPER, MONITORS ESTAB, AT BS. SEE ACTUARIAL ASSOCIATE, ALARMS ON AND C/L IN REACH.
--- NOTE | 2020-03-24 11:10 | NUR ---
R GROIN SITE UNCHANDGED, UPPER LEG AREA SOFT, HEMATOMA NOTED. PT DENIES ANY PAIN. R LEG/FOOT WARM WITH EASILY PALP PULSES. VSS. AT BS.
--- NOTE | 2020-03-24 11:40 | NUR ---
R GROIN SITE SOFT, NO CHANGE IN MARKED AREA WITH SMALL HEMATOMA. R LEG/FOOT WARM WITH PALP PULSES. VSS. PT DENIES PAIN OR NEEDS. AT BS. C/L IN REACH.
--- NOTE | 2020-03-24 11:55 | NUR ---
R GROIN SITE SOFT, NO CHANGE IN MARKED HEMATOMA. PULSES PALP WITH BRISK CAP REFILL. PT DENIES PAIN. C/L IN REACH.
--- NOTE | 2020-03-24 12:19 | NUR ---
R GROIN SITE SOFT, NO S/S BLEEDING. NO CHANGE IN HEMATOMA. VSS.
--- NOTE | 2020-03-24 12:45 | NUR ---
R GROIN SITE SOFT, NO S/S BLEEDING, STABLE HEMATOMA NOTED/MARKED. R LEG/FOOT WARM WITH PALP PULSES. VSS. C/L IN REACH.
--- NOTE | 2020-03-24 13:32 | NUR ---
R GROIN SITE SOFT, NO S/S BLEEDING, STABLE HEMATOMA UNCHANGED. PULSES PALP. VSS. HOB GRADUALLY ELEVATED. WATER PROVIDED, REFUSES ANYTHING TO EAT AT THIS TIME. AT BS. C/L IN REACH.
--- NOTE | 2020-03-24 14:00 | NUR ---
R GROIN SITE SOFT, NO S/S BLEEDING, HEMATOMA STABLE/UNCHANGED. PULSES PALP. PT DENIES PAIN OR NEEDS. VSS. C/L IN REACH.
--- NOTE | 2020-03-24 14:18 | NUR ---
R GROIN SITE UNCHANGED, NO S/S BLEEDING. PIV D/C'D INTACT, DSG APPLIED. PT ALLOWED UP TO GET DRESSED AND GO TO BR, ASSISTING.
--- NOTE | 2020-03-24 14:30 | NUR ---
ALL DISCHARGE INSTRUCTIONS INCLUDING PRECAUTIONS, MEDICATIONS AND F/U APPT, NO QUESTIONS AT THIS TIME. PT D/C'D TO PRIVATE VEHICLE WITH , PT HAS ALL PAPERWORK AND BELONGINGS.
--- NOTE | 2020-03-26 11:30 | HP ---
PATIENT: LASHELL JACKSON MEDICAL RECORD: [id number] ACCOUNT: [id number] LOCATION:[facility] : 51 ADMISSION DATE: 03/24/20 PCP: SHARIFA STEVENS MD HISTORY AND PHYSICAL EXAMINATION UPDATED HISTROY AND PHYSICAL HISTORY OF PRESENT ILLNESS: A 64-year-old female with a history of coronary artery disease, status post intervention to the LAD, at that point in time using a drug-eluting stent. She has known residual disease of the right, she have angina, is being admitted for intervention to the right coronary. PAST MEDICAL HISTORY: Includes; 1. History of coronary artery disease as described above. 2. Dyslipidemia. ALLERGIES: None known. PHYSICAL EXAMINATION: GENERAL: Well-developed, well-nourished female, in no acute distress, appears stated age. HEENT: Normocephalic, atraumatic. NECK: No JVD or bruit. HEART: Regular. LUNGS: Sagastume clear. ABDOMEN: Soft, nontender. EXTREMITIES: Pulse 2+. No edema. IMPRESSION: Continued angina despite revascularization LAD. PLAN: Intervention of the right in the near future. TRANSINT:[id number] Voice Confirmation ID: [id number] DOCUMENT ID: [id number] CALVIN ANDREWS MD at 1130 CC: [id number] DICTATION DATE: 03/23/20 1457 ARCHITECTURAL INTERN: 03/23/20 1525 [facility] 03/24/20 [address] [place] [address]
--- NOTE | 2020-03-26 11:30 | OP ---
PATIENT NAME: LASHELL JACKSON MEDICAL RECORD: [id number] :51 LOCATION:D.CAT ADMISSION DATE: SURGEON: CALVIN ANDREWS MD DATE OF OPERATION: 03/24/2020 PROCEDURE: WORKFORCE ADVISOR stent to the right coronary artery. Please see previously report for details. DESCRIPTION OF PROCEDURE: A 6-Portuguese sheath placed in right femoral artery. Hockey stick with side hole provided excellent guide catheter support followed by a 300 cm Whisper wire. The diffuse LAD was addressed with two 3.0 x 12 [place] drug-eluting stent up to 14 atmospheres for 45 seconds. Final angiography showed excellent resolution of 80% stenosis, no significant residual. ARMANDO flow was 3 throughout the procedure. The patient was previously on Plavix. Heparin was used. Sheath closed with ExoSeal device. TRANSINT:[id number] Voice Confirmation ID: [id number] DOCUMENT ID: [id number] CALVIN ANDREWS MD at 1130 CC: [id number] DICTATION DATE: 03/24/20 1037 PURCHASER AUTOMOTIVE PARTS: 03/24/20 2241 [facility] 03/24/20 [facility] [address] [place] [address]
== END 2020-03-24 14:30 | disposition home or self-care (01) ==
LOC: D.CATH 07:20 → EDSTATUS 09:30 → D.CATH 09:30
PROVIDERS: ATTEND Internal Medicine Interventional Cardiology
DX: I25.119 Atherosclerotic heart disease of native coronary artery with unspecified angina pectoris (principal); E78.5 Hyperlipidemia, unspecified

== ENCOUNTER 2020-05-01 01:27 | Emergency (ER) | payer MEDICARE, OTHER ==
[~2020-05-01] VITALS: Ht 152.4 cm; Wt 53.2 kg
[~2020-05-01 01:27] MED LIST changes: +MERIBIN5 MG PO; +OS-CAL500 MG PO; +VITAMIN D1000 UNIT PO
[2020-05-01 01:39] VITALS: Ht 152.4 cm; Wt 53.2 kg
[2020-05-01] MEDS ORDERED: OMEPRAZOLE20 M1 PO (01:40)
[2020-05-01 01:49] LABS: BASOPHILS 0.5 % (0-2); EOSINOPHILS 1.1 % (0-7); HEMOGLOBIN 13.8 g/dL (12-16); IMMATURE GRANULOCYTES 0.1 % (0-5); LYMPHOCYTES 25.9 % (15-50); MCH 30.1 pg (26.0-34.0); MCHC 32.9 g/dL (31.0-37.0); MCV 91.5 fL (80.0-100.0); MEAN PLATELET VOLUME 9.6 fL (7.4-10.4); MONOCYTES 8.5 % (2-11); NEUTROPHILS 63.9 % (40-80); PLATELET COUNT 197 10x3/uL (130-400); RBC 4.59 10x6/uL (4.00-5.40); WBC 8.1 10x3/uL (4.8-10.8)
[2020-05-01 01:57] LABS: APTT 26.4 SECONDS (22.8-39.4); CALC OSMOLALITY 270 mosm/kg (275-300); CALCIUM 9.4 mg/dL (8.5-10.1); CARBON DIOXIDE 29.5 mmol/L (21.0-32.0); CHLORIDE - SERUM 98 mmol/L (98-107); CREATININE - SERUM 0.7 mg/dL (0.6-1.3); GLUCOSE 112 mg/dL (74-106); INR 0.96 (0.85-1.17); POTASSIUM - SERUM 3.8 mmol/L (3.5-5.1); PROTIME 12.7 SECONDS (11.6-15.0); SODIUM 134 mmol/L (136-145); UREA NITROGEN 19 mg/dL (7-18); eGFR NON AFRICAN AMERICAN 89 mL/min (90-120)
[2020-05-01 02:14] LABS: ALBUMIN 4.1 g/dL (3.4-5.0); ALKALINE PHOSPHATASE 49 U/L (30-120); ALT (SGPT) 40 U/L (10-68); BILIRUBIN - TOTAL 0.44 mg/dL (0.2-1.3); CKMB 1.3 U/L (0.0-3.6); CREATINE KINASE 117 UL (21-215); MAGNESIUM - SERUM 1.9 mg/dL (1.8-2.4); PRO BNP 86 pg/mL (0-125); PROTEIN - SERUM 7.4 g/dL (6.4-8.2); TROPONIN-I < 0.017 ng/mL (0.000-0.060)
[2020-05-01] MEDS ORDERED: PROTONIX40 MG PO (02:36)
[2020-05-01] MEDS ORDERED: CARAFATE1 G PO (02:36)
[2020-05-01 02:48] VITALS: BP 153/69
== END 2020-05-01 02:48 | disposition home or self-care (01) ==
LOC: D.ER 01:27
PROVIDERS: Family Medicine
DX: R07.9 Chest pain, unspecified (principal); I25.10 Atherosclerotic heart disease of native coronary artery without angina pectoris; K21.9 Gastro-esophageal reflux disease without esophagitis

== ENCOUNTER → 2021-01-26 19:41 | Outpatient (CLI) | payer MEDICARE, OTHER ==
[2020-05-01 01:39] VITALS: BMI 22.8
[~2021-01-26 19:41] MED LIST changes: +CARAFATE1 G PO; +OMEPRAZOLE20 M1 PO; +PROTONIX40 MG PO
[2021-01-26 20:16] LABS: CHOL - HDL RATIO 3.4 ratio (2.3-4.1); LDL-HDL RATIO 2.2 ratio (1.5-3.5)
== END | disposition home or self-care (01) ==
LOC: D.LABREF 19:41
PROVIDERS: ATTEND Internal Medicine Interventional Cardiology
DX: E78.5 Hyperlipidemia, unspecified (principal)